=== PATIENT | male | born 1975 | race Caucasian/White ===

== ENCOUNTER 2020-05-13 07:53 | Outpatient (CLI) | payer OTHER, SELFPAY ==
--- NOTE | ~2020-05-13 | MR_ITS ---
EXAMINATION: MR knee RT wo con DATE: 05/13/2020 08:40 INDICATION: Right knee pain and burning sensation. TECHNIQUE: Magnetic resonance imaging (MRI) of the right knee was performed without intravenous contr ast. Sequences included coronal PD-weighted FSE, coronal PD-weighted FS FSE, sagittal T2-weighted FS E, sagittal PD-weighted FS FSE and axial PD weighted fat saturated FSE. COMPARISON: None. FINDINGS: Medial compartment: Longitudinal horizontal tear extending to the superior articular surface near the free edge of the po sterior horn of the medial meniscus. Subtle partial-thickness chondral fissuring without degenerative subarticular changes at the central aspect of the lateral tibial plateau and juxtaposed anterior aixa ghtbearing medial femoral condyle. Lateral compartment: Lateral meniscus is normal. Articular cartilage is normal. Patellofemoral compartment: Deep chondral ulceration at the caudal aspect of the trochlear groove and medial trochlea, the latter with mild cortical irregularity and underlying subarticular cystic change. Cartilage at the patella and lateral trochlea are normal. Ligaments and tendons: Anterior and posterior cruciate ligaments are normal. The medial collateral ligament and fibular brandon ateral ligament complex are normal. The extensor mechanism is normal. The visualized medial and later al hamstring tendons as well as the iliotibial band are normal. Fluid: Physiologic amount of fluid in the joint space. No loose osteochondral bodies identified. Multilobula sobeida ganglion cysts extend along the periphery of the femoral insertion of the lateral head of the gas trocnemius. Trace amount fluid in a small Johnson's cyst. Osseous/other: Second cystic change underlying the medial trochlea there is normal marrow signal throughout. No frac ture or pathologic marrow replacing process. IMPRESSION: 1. Longitudinal horizontal tear at the posterior horn of the medial meniscus. 2. Mild osteoarthritis the medial compartment with small regions of moderate grade chondromalacia. 2. Mild patellofemoral osteoarthritis with high-grade chondromalacia at the trochlear groove and medi al trochlea. Reviewed, dictated and finalized at location A. IMPRESSION: 1. Longitudinal horizontal tear at the posterior horn of the medial meniscus. 2. Mild osteoarthritis the medial compartment with small regions of moderate gr alonzo chondromalacia. 2. Mild patellofemoral osteoarthritis with high-grade chondromalacia at the tro chlear groove and medial trochlea.
== END 2020-05-13 07:54 | disposition home or self-care (01) ==
PROVIDERS: PCP Nurse Practitioner Family; Visit Provider Orthopaedic Surgery
DX: M17.11 Unilateral primary osteoarthritis, right knee (principal)
CPT/HCPCS: 73721

== ENCOUNTER 2020-06-05 | Outpatient (CLI) | payer OTHER, SELFPAY ==
[2020-06-05 16:39] LABS: SARS-CoV-2 RNA PCR Negative
== END 2020-06-05 00:01 | disposition home or self-care (01) ==
LOC: ANHCOVIDDT
PROVIDERS: PCP Nurse Practitioner Family; Visit Provider Orthopaedic Surgery
DX: Z01.812 Encounter for preprocedural laboratory examination (principal); Z20.828 Contact with and (suspected) exposure to other viral communicable diseases
CPT/HCPCS: 87635; C9803; U0003

== ENCOUNTER 2020-06-07 01:55 | Day surgery (SDC) | payer OTHER, SELFPAY ==
[2020-05-24 16:02] VITALS: BMI 33.9
--- NOTE | 2020-06-02 14:24 | PM.IMHP ---
H&P: HPI History of Present Illness Date/Time: 06/02/20 14:24 Chief complaint: right knee medial meniscus tear Narrative: Neri Carter is a 44 year old male Who presents with right knee pain chronic in nature. The patient reports aching burning and pain particularly along the medial portion of his right knee. Patient can not twist turns quite nail go up and down stairs well he reports mechanical symptoms with puffiness and swelling in the knee as well. Patient can not stand or walk for long periods and is limited in his daily activities. Despite anti-inflammatories cortisone therapy and time his symptoms continue. An MRI scan was performed, this shows a right knee medial meniscal tear there is a longitudinal horizontal tear at the posterior horn noted. This is near the free edge of the posterior horn of the medial meniscus. There is subtle partial thickness chondral fissuring without degenerative subarticular changes noted in the central aspect of lateral tibial plateau. The lateral meniscus is normal. There is deep chondral ulceration noted in the patellofemoral trochlear groove and underlying subarticular cystic changes noted. The cartilage of the patella and lateral trochlear grooves are well preserved the medial trochlear groove has deep chondral ulcerations. The anterior and posterior cruciate ligaments are normal medial and lateral collateral ligaments are unremarkable. There are multi lobulated ganglion cysts along the periphery of the femoral insertion of the lateral head of the gastrocnemius and trace amount of fluid is noted in a small Johnson cyst. At this point the patient has discuss further treatment options in detail with Dr. Fernandez has failed conservative measures, the patient is where the above findings he knows he may not get full relief for his knee pain from knee arthroscopy however he would like to proceed. Review of Systems Review of Systems: All systems reviewed & are unremarkable except as noted in HPI and below PMFSH Social History Social History Smoking status: Never smoker Substance use: never Substance use type: does not use Gender identity (if verbalized by the patient): Male Spiritual care concerns: No Meds Home Medications and Allergies Home Medications Medication Instructions Recorded Confirmed Type Vitamin C 1 tab-cap PO DAILY 05/24/20 05/24/20 History albuterol sulfate 2 puff INHALATION PRN PRN 05/24/20 05/24/20 History cholecalciferol (vitamin D3) 25 mcg PO DAILY 05/24/20 05/24/20 History [Vitamin D3] ibuprofen 600 mg PO PRN PRN 05/24/20 05/24/20 History oxycodone-acetaminophen 1 tablet PO PRN PRN 05/24/20 05/24/20 History sertraline 50 mg PO DAILY 05/24/20 05/24/20 History zolpidem 5 mg PO DAILY PRN 05/24/20 05/24/20 History Allergies Allergy/AdvReac Type Severity Reaction Status Date / Time No Known Allergies Allergy Verified 05/24/20 16:15 Exam Narrative: Exam Narrative: the patient is a well-developed well-nourished male in no acute distress. He is alert and oriented x3. Normal mood and affect. HEENT exam within normal limits. Heart regular rate rhythm. Lungs clear to auscultation. Abdomen benign. Extremities showed the patient's right knee to be painful with manipulation range of motion. He has tenderness on the medial joint line with a positive Toni exam negative Lara knee joint is otherwise stable strength is 5 5. He has some puffiness in the right knee with subpatellar crepitation as well. He walks with a mild limp because of his right knee pain. Neurovascular is intact. Skin is intact. Central nervous system exam within normal limits. Assessment and Plan Additional Plan By MRI and exam the patient is noted to have a medial meniscal tear with above associated findings right knee. The patient has discussed risks benefits limitations and alternatives of surgery in great detail Dr. Fernandez
[2020-06-07] VITALS (7 sets, daily range): BP systolic 114–130; BP diastolic 67–83; PULSE 62–78; RESP 14–20; TEMP 36.2–36.5; O2SAT 92–100
[2020-06-07] MEDS: LACTATED RINGERS 1,000 ML 30 ML IV CONT ×2 (07:35→10:46)
[2020-06-07] MEDS: KETOROLAC 15 MG/ML VIAL (*BKC) IV PUSH (07:36)
[2020-06-07] MEDS: ACETAMINOPHEN 500 MG TABLET 1000 MG PO (07:36)
--- NOTE | 2020-06-07 08:13 | WPDANESEPPF ---
Anes - Initial Pre Proc Eval Procedure: Operation Date: 06/07/20 09:00 Proposed Procedures p Right Knee Arthroscopy, Partial Medial Meniscectomy, Proceed As Indicated - Patrick Fernandez MD Date/Time: 06/07/20 08:13 Surgeon: Patrick Fernandez MD Pre Op Diagnosis: right knee medial meniscus tear Patient Data Age: 44 Gender: M Height: 1.83 m Weight: 113.4 kg Allergies Allergy/AdvReac Type Severity Reaction Status Date / Time No Known Allergies Allergy Verified 05/24/20 16:15 Home Medications Medication Instructions Recorded Confirmed Type Vitamin C 1 tab-cap PO DAILY 05/24/20 05/24/20 History albuterol sulfate 2 puff INHALATION PRN PRN 05/24/20 05/24/20 History cholecalciferol (vitamin D3) 25 mcg PO DAILY 05/24/20 05/24/20 History [Vitamin D3] ibuprofen 600 mg PO PRN PRN 05/24/20 05/24/20 History oxycodone-acetaminophen 1 tablet PO PRN PRN 05/24/20 05/24/20 History sertraline 50 mg PO DAILY 05/24/20 05/24/20 History zolpidem 5 mg PO DAILY PRN 05/24/20 05/24/20 History Patient hx anesthesia problems: none Family hx anesthesia problems: none [facility] Past Medical History Medical History (Updated 06/07/20 @ 08:13 by Maikel Britt DO) Asthma inhaler use one time only for the first time in 11/2019 Migraine Osteoarthritis Social History Social History Smoking status: Never smoker Substance use: never Substance use type: does not use Gender identity (if verbalized by the patient): Male Spiritual care concerns: No Anes - Eval Final PreProcedure Day of Procedure 06/07/20 08:13 Patient weight: obese Heart: regular rate and rhythm Lungs: clear to auscultation and normal air movement Airway: Mallampati scale class III Neurological: alert and oriented Last oral intake: >/= 8 hours ASA classification: II Emergent: no Anesthetic plan: proceed Anesthesia type and monitoring: general LMA and standard monitoring Informed Consent: The patient's anesthetic plan and its attendant risks and benefits were discussed with the patient/family/POA. Questions were solicited and answers provided to the satisfaction of the patient/family/POA.
--- NOTE | 2020-06-07 09:06 | WPDHPUPDATE1 ---
History and Physical Update Update Date/Time: 06/07/20 09:06 History and Physical has been reviewed, including an updated exam of the patient. There are NO changes in the patient's condition. Risks, benefits, and alternatives have been discussed and questions answered. Patient agrees to proceed with procedure.
[2020-06-07] MEDS: fentaNYL CITRATE INJ (*CRX) 100 MCG/2 ML VIAL 50 MCG IV PUSH (09:31)
[2020-06-07] MEDS: ceFAZolin 2 GM/D5W 50 ML 2 GM/50 ML BAG IVPB (10:01)
[2020-06-07] MEDS: LIDO 1%/EPINEPHRINE 1:100,000 20 ML VIAL INFILTRATE (10:32)
--- NOTE | 2020-06-07 10:36 | PM.PROC ---
Procedure Note - Detailed Date of procedure: 06/07/20 Pre-op diagnosis: right knee medial meniscus tear Post-op diagnosis: same Procedure performed: [Right] knee arthroscopy with partial meniscetomy Description of procedure: Patient brought to the operating room and anesthetic was administered. The knee was steriley prepped and drapped in the usual manner. Standard portals were used. Superior medial portal was used for the outflow cannula, inferior lateral portal was used for the scope, inferior medial portal was used for the instruments. Arthroscopy was performed, the patellar femoral joint degenerative changes. The medial compartment showed a complex tear. The lateral compartment showed fraying. The ACL was intact. Using baskets and meka the meniscal tear was trimmed back to a stable base so the nothing further could be pulled into the joint. Any loose or delaminated fragments were gently trimmed to a stable base. At this point the instruments were withdrawn, sutures placed and patient left the operating room in satisfactory condition. Anesthesia: GETA Surgeon: Patrick Fernandez MD Estimated blood loss (mL): 20 Drains: No Packing: No Pathology: none sent Complications: No immediate complications Condition: stable Disposition: PACU
[2020-06-07] MEDS: oxyCODONE HCL (*CRX) 5 MG TAB IR PO (11:50)
== END 2020-06-07 12:50 | disposition home or self-care (01) ==
PROVIDERS: PCP Nurse Practitioner Family; Visit Provider Orthopaedic Surgery
PROC: (CPT 29870; principal; 2020-06-07 09:00)
DX: M23.231 Derangement of other medial meniscus due to old tear or injury, right knee (principal); J45.909 Unspecified asthma, uncomplicated; M19.90 Unspecified osteoarthritis, unspecified site; G43.909 Migraine, unspecified, not intractable, without status migrainosus; E66.9 Obesity, unspecified; Z68.35 Body mass index [BMI] 35.0-35.9, adult
CPT/HCPCS: 29881; A9270; J0690; J1100; J1885; J2250; J2270; J2405; J2704; J3010; J7120

== ENCOUNTER 2021-09-26 13:19 | Outpatient (RCR) | payer OTHER, SELFPAY ==
[2021-09-26] MEDS: ACETAMINOPHEN 325 MG TABLET 650 MG PO (14:22)
[2021-09-26] MEDS: FAMOTIDINE 20 MG TABLET PO (14:22)
[2021-09-26] MEDS: diphenhydrAMINE HCl CAP 25 MG CAPSULE PO (14:22)
[2021-09-26 14:25] VITALS: BP 130/70; PULSE 105; RESP 18; TEMP 37.4; O2SAT 100
[2021-09-26 15:55] VITALS: BP 107/83
== END 2021-09-26 17:00 ==
LOC: AMCINF 13:19
PROVIDERS: PCP Nurse Practitioner Family; Referring Provider Nurse Practitioner Family; Visit Provider Internal Medicine Hematology & Oncology
DX: U07.1 COVID-19 (principal)
CPT/HCPCS: A9270; M0247

== ENCOUNTER 2021-12-04 10:47 | Emergency (ER) | payer OTHER, SELFPAY ==
[2021-12-04 11:00] VITALS: BP 147/81; PULSE 86; RESP 18; TEMP 36.4; O2SAT 100
--- NOTE | 2021-12-04 11:10 | ED.BACK ---
HPI - Back Pain/Injury General Chief Complaint: Back Pain/Injury Stated Complaint: Back Pain Time Seen by Provider: 12/04/21 11:10 Source: patient Mode of arrival: ambulatory Limitations: no limitations History of Present Illness HPI Narrative: 45-year-old male presents with history of low back pain. Reports that his primary care physician give some Flexeril and takes Advil and pain is controlled. Last several days pain to low back is worse, pain medication at home is not helping. Did take Vicodin from his girlfriend that helped him relax. Had telehealth visit with primary care physician yesterday but call would not connect. Has had no recent injuries at work. 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 Ambulatory with steady gait, no radiation of pain to lower extremities. Denies numbness tingling or weakness to lower extremities. No loss of bowel or bladder. All systems reviewed and negative except as noted above. Related Data Home Medications Medication Instructions Recorded Confirmed Vitamin C 1 tab-cap PO DAILY 05/24/20 06/07/20 albuterol sulfate 2 puff INHALATION PRN PRN 05/24/20 06/07/20 cholecalciferol (vitamin D3) 25 mcg PO DAILY 05/24/20 06/07/20 [Vitamin D3] ibuprofen 600 mg PO PRN PRN 05/24/20 06/07/20 oxycodone-acetaminophen 1 tablet PO PRN PRN 05/24/20 06/07/20 sertraline 50 mg PO DAILY 05/24/20 06/07/20 zolpidem 5 mg PO DAILY PRN 05/24/20 06/07/20 Allergies Allergy/AdvReac Type Severity Reaction Status Date / Time No Known Allergies Allergy Verified 06/07/20 08:19 Review of Systems Review of Systems: CONSTITUTIONAL: Denies fever, chills, or sweats. EYES: Denies visual changes, redness, or discharge. ENT: Denies rhinorrhea, congestion, sore throat, or otalgia. CARDIOVASCULAR: Denies chest pain, palpitations, or edema. RESPIRATORY: Denies cough or dyspnea. GASTROINTESTINAL: Denies abdominal pain, nausea, vomiting, or diarrhea. GENITOURINARY: Denies dysuria or hematuria. SKIN: Denies rash or itching. MUSCULOSKELETAL: Reports low back pain. Denies joint pain, or myalgia. NEUROLOGIC: Denies headache, numbness, or weakness. PSYCHIATRIC: Denies anxiety or depression. All other systems reviewed are negative, except as documented in HPI. [facility] Past Medical History Medical History (Updated 12/05/21 @ 00:00 by Marychuy Datracy) Asthma inhaler use one time only for the first time in 11/2019 Migraine Osteoarthritis Social History Social History Smoking status: Never smoker Substance use: never Substance use type: does not use Gender identity (if verbalized by the patient): Male Spiritual care concerns: No Comments At time of signature, agree with nursing past medical, surgical, social and family history. There is no relevant family history pertinent to the presenting complaint. Exam Narrative: GENERAL: This is a well-nourished, well-developed patient, in no apparent distress. HEAD: normocephalic, atraumatic. EYES: PERRL. Sclera clear/white. Vision is grossly intact. EARS: External ears normal, auditory canals clear and without drainage, TMs normal without perforation. Hearing grossly intact. NOSE: External nose normal with no obvious nasal discharge, nares without redness, no rhinorrhea. THROAT: Mucous membranes moist, posterior pharynx clear. NECK: Neck supple, non-tender without lymphadenopathy, masses or thyromegaly. CARDIOVASCULAR: Regular rate and rhythm without murmurs, gallops, or rubs. RESPIRATORY: Clear to auscultation. Breath sounds equal bilaterally. No wheezes, rales, or rhonchi. GASTROINTESTINAL: Abdomen soft, non-tender, nondistended. Bowel sounds are active. No hepato-splenomegaly, or palpable masses. No guarding. SKIN: warm, Dry, intact with no suspicious lesions or rash, good texture and turgor. NEURO: awake, alert, and oriented to person, place and time. There were no obvious focal neurologic abnormalitie
== END 2021-12-04 11:30 | disposition home or self-care (01) ==
PROVIDERS: Emergency Provider Nurse Practitioner Family; PCP Nurse Practitioner Family
DX: S39.012A Strain of muscle, fascia and tendon of lower back, initial encounter (principal); X58.XXXA Exposure to other specified factors, initial encounter; J45.909 Unspecified asthma, uncomplicated; M19.90 Unspecified osteoarthritis, unspecified site
CPT/HCPCS: 99213; G0463

== ENCOUNTER 2024-05-13 09:12 | Emergency (ER) | payer OTHER, SELFPAY ==
--- NOTE | 2024-05-13 09:18 | ED.GENADULT ---
HPI - General Adult General Chief complaint: Abdominal Pain Stated complaint: Anxiety Time Seen by Provider: 05/13/24 09:57 Source: patient, RN notes reviewed and old records reviewed Mode of arrival: ambulatory Limitations: no limitations History of Present Illness HPI narrative: 48-year-old male presents to the [facility] with right upper abdominal pain, or right lower rib pain. Patient states the pain is radiating up into his right chest from his right upper quadrant. Patient states that he was discharged after a week stay at [facility] for a TIA. Patient was discharged yesterday. States that he took aspirin. States that his discharge papers said if symptoms returned or got worse to go to the emergency room. Patient states that he tried going to his primary care provider just prior to arrival, was told to go the emergency room. Patient came to the urgent care stating that he does not have time to wait and has an appointment at 1:00 pm. Patient denies any nausea or vomiting just has severe pain in the right upper quadrant Related Data Home Medications Medication Instructions Recorded Confirmed aspirin 81 mg chewable tablet 81 mg PO QID 05/13/24 05/13/24 Allergies Allergy/AdvReac Type Severity Reaction Status Date / Time No Known Allergies Allergy Verified 05/13/24 10:11 Review of Systems Review of Systems: All systems reviewed & are unremarkable except as noted in HPI and below Constitutional: Constitutional: Reports no additional constitutional complaints Eyes: Eyes: Reports no additional eye complaints ENT: Reports system reviewed and no additional complaints, except as documented Cardiovascular: Cardiovascular: Reports no additional cardiovascular complaints, Denies chest pain and Denies dyspnea Respiratory: Respiratory: Reports no additional respiratory complaints, Denies chest congestion, Denies cough and Denies dyspnea Gastrointestinal: Gastrointestinal: Reports as per HPI, Reports abdominal pain, Denies nausea and Denies vomiting Genitourinary: Genitourinary: Reports no additional male genitourinary complaints Musculoskeletal: Musculoskeletal: Reports no additional musculoskeletal complaints Integumentary/Breasts: Skin/Breast: Reports system reviewed and no additional complaints, except as docu Neurologic: Reports system reviewed and no additional complaints, except as documented Psychiatric: Psychiatric: Reports no additional psychiatric complaints Allergic/Immunologic: Allergic/Immunologic: Reports no additional allergic/immunologic complaints PMFSH Past Medical History Medical History Asthma inhaler use one time only for the first time in 11/2019 Migraine Osteoarthritis Social History Social History Smoking status: Never smoker Substance use: never Substance use type: does not use Gender identity (if verbalized by the patient): Male Spiritual care concerns: No Comments At the time of my signature, I reviewed and agree with the nursing past medical, surgical, social, and family history. There is no relevant family history pertinent to the patient complaint. Exam Const: General: cooperative, no acute distress, well developed, alert, uncomfortable and well nourished Nutritional Appearance: well nourished Orientation/consciousness: patient oriented x3 Limitations: no limitations HENMT: Head: normal to inspection Ears: hearing grossly normal bilaterally and external ears normal Face/Nose/Sinus: Normal external nose present, Normal nares present, Normal nasal mucous membranes and turbinates present, normal facial exam and face symmetric Face and sinus: normal facial exam and face symmetric Eyes: General: appearance normal, both eyes and all related structures Alignment and Position: alignment normal Periorbital: periorbital findings normal Neck: Neck: normal vi
[2024-05-13 09:22] VITALS: BP 126/86; PULSE 71; RESP 20; TEMP 36.3; O2SAT 95
== END 2024-05-13 10:18 | disposition short-term general hospital (02) ==
LOC: EXPCOLL 09:16
PROVIDERS: Emergency Provider Nurse Practitioner; PCP Nurse Practitioner Family
DX: R10.11 Right upper quadrant pain (principal); J45.909 Unspecified asthma, uncomplicated; M19.90 Unspecified osteoarthritis, unspecified site; Z86.73 Personal history of transient ischemic attack (TIA), and cerebral infarction without residual deficits; Z79.82 Long term (current) use of aspirin
CPT/HCPCS: 99212; 99213; G0463